=== PATIENT | female | born 1945 | race Caucasian/White ===

== ENCOUNTER 2017-09-12 08:01 | Outpatient (CLI) | payer BC ==
[~2017-09-12] VITALS: Ht 165.1 cm; Wt 98.6 kg
--- NOTE | ~2017-09-12 | HP ---
PATIENT: ТАТЬЯНА FERNANDES MEDICAL RECORD: [id number] ACCOUNT: [id number] LOCATION:[facility] : 43 ADMISSION DATE: 09/12/17 HISTORY AND PHYSICAL EXAMINATION DIAGNOSES: 1. Angina. 2. Abnormal nuclear stress test. 3. Hypertension. 4. Hyperlipidemia. HISTORY OF PRESENT ILLNESS: Ms. Fernandes presented with anginal symptomatology, risk stratify with a nuclear stress test reveals significant reversible ischemia, now brought for cardiac catheterization. REVIEW OF SYSTEMS: The patient reports easy bruising but reports no swollen glands. The patient reports no fever, no night sweats, no significant weight gain, no significant weight loss. No significant exercise tolerance. The patient reports no dry eyes, no irritation, no vision change. Patient reports no difficulty hearing and no ear pain. Patient reports no frequent nose bleeds or nose and sinus problems. Patient reports on arm pain on exertion. No shortness of breath while lying down. No history of heart murmur. Patient reports no cough, no wheezing or coughing up blood. Patient reports no abdominal pain, no vomiting. Normal appetite. No diarrhea and not vomiting blood. No nausea and no constipation. Patient reports no incontinence. No difficulty urinating. No hematuria. No increased frequency. Patient reports no muscle aches. No weakness, no arthralgias, no back pain. No swelling of the extremities. Patient reports no abnormal mole, no jaundice, no rashes. Reports no loss of consciousness. No weakness and no numbness. No seizures, dizziness, or headaches. The patient reports no depression, no sleep disturbance, feeling safe in a relationship and no alcohol abuse. Patient reports on fatigue. Reports no runny nose or sinus pressure. No itching, no hives, and no frequent sneezing. PHYSICAL EXAMINATION: GENERAL APPEARANCE: Well-nourished, well-developed, appears stated age. Level of distress, comfortable. PSYCHIATRIC: Mental status, alert, normal affect. Orientation, oriented to time, place and person. EYES: Lids and conjunctiva, noninjected. No discharge, no pallor. ENT: Lips, teeth, gums, normal dentition. Oropharynx, no cyanosis, no pallor. NECK: Carotid arteries, bilateral normal upstroke, no bruits, no thrills. JUGULAR VEINS: No jugular venous pressure or distention. CERVICAL LYMPH NODES: Nontender, nonenlarged. THYROID: Not enlarged. Nontender. No nodules. LUNGS: Respiratory effort, unlabored. CHEST: Normal curvature. No thoracic deformity. No chest wall tenderness. Percussion, resonant. Auscultation, clear. No wheezes, no rales, no rhonchi. CARDIOVASCULAR: Precordial exam, nondisplaced. No heaves or pericardial thrills. Rate and rhythm, regular. Heart sounds, normal S1, normal S2. No S3, no gallop, no rub. Systolic murmur, not heard. Diastolic murmur, not heard. EXTREMITIES: No cyanosis, no edema. Peripheral pulses, full and equal in all extremities, except as noted. No bruits appreciated. ABDOMEN: Soft, nondistended. Normal aorta. No bruit. Nontender. No masses. Liver, nontender, no hepatomegaly. Spleen, nontender, no splenomegaly. HISTORY AND PHYSICAL [id number] ТАТЬЯНА FERNANDES MUSCULOSKELETAL: No joint tenderness. No joint swelling. No erythema. NEUROLOGICAL: Normal gait, normal strength, normal tone. SKIN: Warm and dry. OVERALL IMPRESSION: Anginal symptomatology with significant reversibility on nuclear stress test. She has a high likelihood of hemodynamically significant coronary artery disease. We will proceed with coronary angiography. Further care depends upon the findings of the angiography. TRANSINT:[id number] Voice Confirmation ID: [id number] DOCUMENT ID: [id number] SOMMER KEN MD at 1324 CC: [id number] DICTATION DATE: 09/12/17 0954 LIVESTOCK PRODUCER: 09/12/17 1028 [facility] CL 09/12/[address] [address]
--- NOTE | ~2017-09-12 | OP ---
PATIENT NAME: ТАТЬЯНА PORTILLO MEDICAL RECORD: [id number] :43 LOCATION:D.CAT ADMISSION DATE: SURGEON: SOMMER KEN MD DATE OF OPERATION: 09/12/2017 PROCEDURES: 1. PTCA stent to RCA. 2. Intravascular ultrasound. 3. Left heart catheterization. 4. Selective coronary angiography. 5. Left ventriculogram. INDICATION: Angina and coronary artery disease. PROCEDURE IN DETAIL: After informed consent was obtained and after detailed explanation of risks, benefits as well as alternative therapies, the patient elected to proceed with angiogram and angioplasty. The right femoral area was prepped and draped in normal sterile fashion. The right femoral artery was cannulated via modified Seldinger technique with placement of a 6-Pashto sheath. All catheters exchanged through this sheath. FINDINGS: Left ventriculogram was performed in standard 30-degree CHAMBERS view, reveals good cardiac wall motion throughout all segments. Overall ejection fraction estimated at 60%. SELECTIVE CORONARY ANGIOGRAPHY: 1. Left main showed no significant angiographic disease. 2. Left anterior descending has previously placed stents. There is a hazy area of questionable stenosis proximal to this; however, intravascular ultrasound reveals that this is no greater than 40%. 3. The left circumflex has moderate irregularities, but no flow-limiting stenosis. 4. Right coronary artery has a greater than 80% stenosis in the mid vessel confirmed by intravascular ultrasound. PTCA STENT OF THE RCA: The stent used is 4.0 x 26 mm Integrity. Result was 0% residual stenosis. OVERALL IMPRESSION: Successful percutaneous transluminal coronary angioplasty stent of the right coronary artery going from greater than 80% initial stenosis to 0% residual stenosis. TRANSINT:[id number] Voice Confirmation ID: [id number] DOCUMENT ID: [id number] SOMMER KEN MD at 1324 CC: [id number] DICTATION DATE: 09/12/17 1138 BOOMSWING OPERATOR: 09/12/17 1326 [facility] CLI 09/12/[address] [address]
--- NOTE | ~2017-09-12 | HEMODYNAMI ---
PATIENT:ТАТЬЯНА PORTILLO MEDICAL RECORD: [id number] : 43 LOCATION:[facility]TE[facility] ADMISSION DATE: 09/12/17 Generatedon:09/12/201711:42 Patient name: ТАТЬЯНА PORTILLO Patient #: [id number] SSN: : 1945 Date of study: 09/12/2017 Page: Of Hemodynamic Procedure Report Patient Data Patient Demographics Procedure consent was obtained First Name: ТАТЬЯНА Gender: Female Last Name: LINDSEY : 1945 Middle Initial: D Age: 72 year(s) Patient #: [id number] Race: Unknown Additional ID: [id number] Contact details Address: [place] [address] State: [place] City: [place] Zip code: [address] Past Medical History Allergies Allergen Reaction Date Comments Reported Other allergy 09/12/2017 LIPITOR Admission Admission Data Admission Date: 09/12/2017 Admission Time: 8:01 Lab Results Lab Result Date: 09/12/2017 Lab Result Time: 0:00 Biochemistry Name Units Result Min Max BUN mg/dl 28 --(----)-* 7 18 Creatinine mg/dl 1.1 --(--*-)-- 0.6 1.3 CBC Name Units Result Min Max Hemoglobin g/dl 12.4 *-(----)-- 13.5 17.5 Procedure Procedure Types Cath Procedure Diagnostic Procedure [facility] w/Coronaries FFR/IVUS Intra-Coronary IVUS Initial Intra-Coronary IVUS Additional PCI Procedure Coronary Stent Coronary Stent Initial Miscellaneous Procedures Moderate Sedation up to 30 minutes Procedure Description Procedure Date Procedure Date: 09/12/2017 Procedure Start Time: 11:07 Procedure End Time: 11:41 Procedure Staff Name Function Luke Aguiar MD Performing Physician Iliana Lobo RT Monitor Jose Manuel Mooney RT Scrub Loki Aggarwal RN Nurse Procedure Data Cath Procedure Fluoroscopy Diagnostic fluoroscopy Total fluoroscopy Time: 8.6 time: 8.6 min min Diagnostic fluoroscopy Total fluoroscopy dose: 596 dose: 596 mGy mGy Contrast Material Contrast Material Type Amount (ml) Isovue 300 100 Entry Location Entry Primary Successful Side Size Upsize Upsize Entry Closure Marin ccessful Closure Location (Fr) 1 (Fr) 2 (Fr) Remarks Device Remarks Radial Right 6 Fr Mechanical TR BAND artery Short Compression Femoral Right 6 Fr Exoseal artery Short Estimated blood loss: 10 ml Diagnostic catheters Device Type Used For End Catheter Placement DIAGNOSTIC Syed 110cm Procedure 5Fr catheter ([id number]) Procedure Complications No complications Procedure Medications Medication Administration Route Dosage Oxygen NC 2 l/min 0.9% NaCl I.V. 100 ml/hr Heparin Flush Bag added to field 2 bags (1000units/500ml NS) Radial Cocktail added to field 1 syringe (Verapomil 2mg/Nitro 400mcg/Heparin 1500units) Fentanyl I.V. 50 mcg Versed I.V. 1 mg Fentanyl I.V. 50 mcg Versed I.V. 1 mg Fentanyl I.V. 50 mcg Versed I.V. 1 mg Radial Cocktail I.A. 1 syringe (Verapomil 2mg/Nitro 400mcg/Heparin 1500units) Fentanyl I.V. 50 mcg Versed I.V. 1 mg Zofran I.V. 4 mg Radial Cocktail added to field 1 syringe (Verapomil 2mg/Nitro 400mcg/Heparin 1500units) Radial Cocktail added to field 1 syringe (Verapomil 2mg/Nitro 400mcg/Heparin 1500units) Fentanyl I.V. 50 mcg Heparin Bolus I.V. 2000 units Integrilin (Bolus I.V. 9 ml 2mg/ml) Fentanyl I.V. 50 mcg Plavix P.O. 600 mg Hemodynamics Rest HGB: 12.4 (g/dl) Heart Rate: 66 (bpm) Snapshots Pre Cath Intra NCS Post Cath Vital Signs Time Heart Resp SPO2 etCO2 NIBP (mmHg) Rhythm Pain Sedation Rate (ipm) (%) (mmHg) Status Level (bpm) 10:38:07 68 23 99 0 153/83(136) NSR 0 (11) 10(A) , No pain 10:42:43 66 24 100 28.6 147/82(123) NSR 0 (11) 10(A) , No pain 10:47:18 65 26 100 27.8 140/79(119) NSR 0 (11) 10(A) , No pain 10:51:50 66 23 99 33.9 133/76(114) NSR 0 (11) 10(A) , No pain 10:56:18 64 17 98 33.1 132/76(105) NSR 0 (11) 10(A) , No pain 11:00:47 63 22 99 30.8 135/75(104) NSR 0 (11) 10(A) , No pain 11:05:19 62 21 100 33.1 130/67(115) NSR 0 (11) 10(A) , No pain 11:09:48 67 18 100 33.1 130/70(106) NSR 0 (11) 9(A) , No pain 11:14:14 66 20 98 33.9 117/70(96) NSR 0 (11) 9(A) , No pain 11:18:38 66 19 97 34.6 109/66(87) NSR 0 (11) 9(A) , No pain 11:23:00 69 18 98 29.3 113/63(89) NSR 0 (11) 9(A) , No pain 11:27:23 66 21 98 33.9 115/63(94) NSR 0 (11) 9(A) , No pain 11:32:54 63 23 99 34.6 130/74(115) NSR 0 (11) 9(A) , No pain 11:37:19 65 19 99 39.8 126/73(104) NSR 0 (11) 10(A) , No pain 11:41:43 62 17 100 36.1 124/76(98) NSR 0 (11) 10(A) , No pain Medications Time Medication Route Dose Verified Delivered Reason Note s Effectiveness by by 10:43:32 Oxygen NC 2 l/min Luke Manjarrez Per physician Cosme Aggarwal RN 10:43:41 0.9% NaCl I.V. 100 uLke Manjarrez Per physician ml/hr Cosme Aggarwal RN 10:43:51 Heparin Flush added 2 bags Luke Manjarrez used for Bag to Cosme Aggarwal RN procedure (1000units/500ml field NS) 10:44:04 Radial Cocktail added 1 Luke Manjarrez used for (Verapomil to syringe Cosme Aggarwal RN procedure 2mg/Nitro field 400mcg/Heparin 1500units) 10:52:47 Zofran I.V. 4 mg Luke Manjarrez for nausea Cosme Aggarwal RN 11:03:25 Fentanyl I.V. 50 mcg Luke Manjarrez for sedation Cosme Aggarwal RN 11:03:29 Versed I.V. 1 mg uLke Manjarrez for sedation Cosme Aggarwal RN 11:06:42 Fentanyl I.V. 50 mcg Luke Manjarrez for sedation Cosme Aggarwal RN 11:06:47 Versed I.V. 1 mg Luke Manjarrez for sedation Cosme Aggarwal RN 11:08:21 Fentanyl I.V. 50 mcg Luke Manjarrez for sedation Cosme Aggarwal RN 11:08:26 Versed I.V. 1 mg Luke Loki for sedation Cosme Aggarwal RN 11:09:32 Radial Cocktail I.A. 1 Luke Butler for (Verapomil syringe Cosme Aguiar MD vasodilation 2mg/Nitro 400mcg/Heparin 1500units) 11:09:49 Fentanyl I.V. 50 mcg Luek Butler for sedation Cosme Aguiar MD 11:09:54 Versed I.V. 1 mg Luke Butler for sedation Cosme Aguiar MD 11:14:33 Radial Cocktail added 1 Luke Manjarrez used for (Verapomil to syringe Cosme Aggarwal RN procedure 2mg/Nitro field 400mcg/Heparin 1500units) 11:16:25 Radial Cocktail added 1 Luke Butler for (Verapomil to syringe Cosme Aguiar MD vasodilation 2mg/Nitro field 400mcg/Heparin 1500units) 11:16:30 Fentanyl I.V. 50 mcg Luke Manjarrez for sedation Cosme Aggarwal RN 11:21:09 Heparin Bolus I.V. 2000 Luke Manjarrez for units Cosme Aggarwal RN anticoagulation 11:30:42 Integrilin I.V. 9 ml Luke Manjarrez for (Bolus 2mg/ml) Cosme Aggarwal RN anticoagulation 11:31:32 Fentanyl I.V. 50 mcg Luke Manjarrez for sedation Cosme Aggarwal RN 11:35:59 Plavix P.O. 600 mg Luke Manjarrez for Cosme Aggarwal RN antiplatelet therapy Procedure Log Time Note 10:06:58 Time tracking: Regular hours 10:07:03 Plan of Care:Hemodynamics will remain stable., Cardiac rhythm will remain stable., Comfort level will be maintained., Respiratory function will remain adequate., Patient/ family verbilizes understanding of procedure., Procedure tolerated without complication., Recovers from procedure without complications.. 10:08:00 Lab Result : Creatinine 1.1 mg/dl 10:08:00 Lab Result : BUN 28 mg/dl 10:08:00 Lab Result : Hemoglobin 12.4 g/dl 10:08:05 Lab results completed and on chart. 10:16:46 Jose Manuel Mooney RT(R) sent for patient. Start room use. 10:30:46 H&P Date Dictated: 09/12/2017 Within 30 days and on chart., H&P Addendum completed by physician on day of procedure. (MUST COMPLETE FOR ALL OUTPATIENTS). 10:31:15 Patient received from Pre/Post Procedure Room to CCL 3 Alert and oriented. Tansferred to table in Supine position. 10:31:17 Warm blankets applied, and mayad hugger turned on for patient comfort. 10:31:17 Correct patient and procedure confirmed by team. 10:31:18 Signed procedure consent form obtained from patient. 10:31:19 ECG and BP/O2 sat monitors applied to patient. 10:36:37 Vital chart was started 10:42:10 Baseline sample Acquired. 10:42:15 Rhythm: sinus rhythm 10:42:16 Full Disclosure recording started 10:42:17 Pre-procedure instructions explained to patient. 10:42:17 Pre-op teaching completed and patient verbalized understanding. 10:42:21 Family in patients room. 10:42:23 Patient NPO since Midnight. 10:42:34 Patient allergic to Other allergyLIPITOR 10:42:36 Is the patient allergic to Iodine/contrast media? No. 10:42:37 Is patient on blood thinner?Yes 10:42:59 PT LAST HAD WARFIN ON 09.07.17 10:43:02 Patient diabetic? Yes. 10:43:03 If diabetic: On Metformin? Yes 10:43:06 If on Metformin: Last Dose? 09/10/2017 10:43:10 Patient not . Patient is over age 55. 10:43:18 Previous problem with sedation/anesthesia? Yes NAUSEA 10:43:19 Snore? Yes 10:43:20 Sleep apnea? No 10:43:22 Deviated septum? No 10:43:23 Opens mouth fully? Yes 10:43:24 Sticks out tongue? Yes 10:43:25 Airway obstruction? No ? 10:43:28 Dentures? No ? 10:43:31 Modified Navneet's test Ulnar < 7 seconds 10:43:32 Oxygen 2 l/min NC was administered by Loki Aggarwal RN; Per physician; 10:43:32 Patient pain scale 0/10 ?. 10:43:41 0.9% NaCl 100 ml/hr I.V. was administered by Loki Aggarwal RN; Per physician; 10:43:51 Heparin Flush Bag (1000units/500ml NS) 2 bags added to field was administered by Loki Aggarwal RN; used for procedure; 10:44:04 Radial Cocktail (Verapomil 2mg/Nitro 400mcg/Heparin 1500units) 1 syringe added to field was administered by Loki Aggarwal RN; used for procedure; 10:44:51 IV patent on arrival in left forearm with 0.9% NaCl at [facility]. 10:44:57 Alarms reviewed by R. N. 10:45:01 Sharps counted by scrub and verified by R.N. 10:46:52 Use device set Radial Dx or PCI 10:46:53 ACIST Syringe (10670) opened to sterile field. 10:46:54 ACIST Hand Control (14179) opened to sterile field. 10:46:55 ACIST Manifold (85215) opened to sterile field. 10:46:55 Tegaderm 4 x 4 (1626W) opened to sterile field. 10:46:58 Bag Decanter () opened to sterile field. 10:46:59 Medline Cath Pack ([id number]) opened to sterile field. 10:46:59 SHEATH 6FR Slender ([id number]) opened to sterile field. 10:47:00 DIAGNOSTIC WIRE .035 260cm J wire (324719) opened to sterile field. 10:47:00 MBrace Wrist Support ([id number]) opened to sterile field. 10:52:47 Zofran 4 mg I.V. was administered by Loki Aggarwal RN; for nausea; 11:03:17 --------ALL STOP TIME OUT------ :17 Final Timeout: patient, procedure, and site verified with staff and physician. All members of the team are in agreement. 11::19 Right Radial & Right Groin site verified by team. ::22 Physical assessment completed. ASA score P 2 - A patient with mild systemic disease as per Luke Aguiar MD. ::25 Fentanyl 50 mcg I.V. was administered by Loki Aggarwal RN; for sedation; :25 Sedation plan: IV Moderate Sedation Medication:Versed, Fentanyl 11::29 Versed 1 mg I.V. was administered by Loki Aggarwal RN; for sedation; ::28 Zero performed for pressure channel P1 11::42 Fentanyl 50 mcg I.V. was administered by Loki Aggarwal RN; for sedation; 11::47 Versed 1 mg I.V. was administered by Loki Aggarwal RN; for sedation; 11::33 Procedure started. 11::38 Local anesthetic to right radial artery with Lidocaine 2% by Luke Aguiar MD.INITIAL ACCESS ONLY 11:08:21 Fentanyl 50 mcg I.V. was administered by Loki Aggarwal RN; for sedation; 11:08:26 Versed 1 mg I.V. was administered by Loki Aggarwal RN; for sedation; 11:08:55 A 6 Fr Short sheath was inserted into the Right Radial artery 11:09:11 A DIAGNOSTIC Syed 110cm 5Fr catheter (988132) was advanced over the wire and used for Procedure. 11:09:32 Radial Cocktail (Verapomil 2mg/Nitro 400mcg/Heparin 1500units) 1 syringe I.A. was administered by Luke Aguiar MD; for vasodilation; 11:09:49 Fentanyl 50 mcg I.V. was administered by Luke Aguiar MD; for sedation; 11::54 Versed 1 mg I.V. was administered by Luke Aguiar MD; for sedation; 11:10:13 LV gram done using CHAMBERS 11:10:16 Injector settings: Ml/sec: 7, Volume: 15, 11:10:36 EF : 55 % 11:11:52 RCA angiography performed. 11:12:18 Catheter removed. 11:13:19 GUIDE 6FR XBLAD 3.5 catheter ([id number]) opened to sterile field. 11:13:47 Merit INFLATION SYRINGE opened to sterile field. 11:14:04 CHOICE PT Extra Support 182cm wire ([id number]) opened to sterile field. 11:14:33 Radial Cocktail (Verapomil 2mg/Nitro 400mcg/Heparin 1500units) 1 syringe added to field was administered by Loki Aggarwal RN; used for procedure; 11:15:04 6 Fr XBLAD 3.5 guide catheter was inserted over the wire 11:15:30 Guide catheter removed. 11:15:40 RADIAL SPASM...WILL GO TO GROIN 11:16:08 Local anesthetic to right femoral artery with Lidocaine 2% by Luke Aguiar MD.ADDITIONAL ACCESS 11:16:24 SHEATH 6FR [place] (VSR259) opened to sterile field. 11:16:25 Radial Cocktail (Verapomil 2mg/Nitro 400mcg/Heparin 1500units) 1 syringe added to field was administered by Luke Aguiar MD; for vasodilation; 11:16:30 Fentanyl 50 mcg I.V. was administered by Loki Aggarwal RN; for sedation; 11:16:43 A 6 Fr Short sheath was inserted into the Right Femoral artery 11:17:47 6 Fr XBLAD 3.5 guide catheter was inserted over the wire 11:18:35 LCA angiography performed. 11:19:36 [place] IVUS Catheter (97008C) opened to sterile field. 11:20:11 CHOICE PT wire advanced. 11:20:16 Wire advanced across lesion. 11:20:53 IVUS catheter advanced over wire. 11:20:59 IVUS pass to LAD lesion performed. 11:21:09 Heparin Bolus 2000 units I.V. was administered by Loki Aggarwal RN; for anticoagulation; 11:24:28 IVUS catheter removed over wire. 11:26:18 Wire removed. 11:26:19 Guide catheter removed. 11:26:47 GUIDE 6FR AR 1.0 catheter ([id number]) opened to sterile field. 11:27:07 6 Fr AR1 guide catheter was inserted over the wire 11:27:45 CHOICE PT wire advanced. 11:27:50 Wire advanced across lesion. 11:28:17 IVUS catheter advanced over wire. 11:28:20 IVUS pass to RCA lesion performed. 11:29:17 IVUS catheter removed over wire. 11:30:42 Integrilin (Bolus 2mg/ml) 9 ml I.V. was administered by Loki Aggarwal RN; for anticoagulation; 11:31:32 Fentanyl 50 mcg I.V. was administered by Loki Aggarwla RN; for sedation; 11:31:38 Inflation Number: 1 A INTEGRITY RX 4.0 x 26 stent ([id number]) was prepped and advanced across the Mid RCA. The stent was deployed at 17 DON for 0:00 (min:sec). 11:32:02 Stent catheter was removed intact over wire. 11:32:02 Wire removed. 11:32:03 Guide catheter removed. 11:32:06 TR BAND Standard ([id number]) opened to sterile field. 11:32:12 EXOSEAL 6Fr (EX600) opened to sterile field. 11:32:28 Sheath removed intact; hemostasis achieved with Exoseal to the Right Femoral artery. 11:32:46 Sheath removed intact; hemostasis achieved with Mechanical Compression to the Right Radial artery. 11:32:53 Procedure ended.(Physican Out) 11:35:14 Fluoroscopy dose: 596 mGy 11:35:14 Flurop Dose total: 596 11:35:19 Fluoroscopy time 08.60 minutes. 11:35:32 Contrast amount:Isovue 300 100ml. 11:35:35 Sharps counted by scrub and verified by R.N. 11:35:45 TR band inflated with 10cc of air. 11:35:49 Post-op/insertion site Right Femoral artery dressed using a 4 x 4 and Tegaderm. 11:35:52 Post right femoral artery:stable, soft, clean and dry 11:35:57 Post-procedure physical assessment completed. ASA score P 2 - A patient with mild systemic disease as per Luke Aguiar MD. 11:35:59 Plavix 600 mg P.O. was administered by Loki Aggarwal RN; for antiplatelet therapy; 11:36:02 Post procedure rhythm: unchanged. 11:36:04 Estimated blood loss: 10 ml 11:36:05 Post procedure instruction explained to patient.Patient verbalizes understanding. 11:36:06 Patient needs reinforcement of post procedure teaching. 11:36:48 Procedure type changed to Cath procedure, Diagnostic procedure, LHC, [facility] w/Coronaries, FFR/IVUS, Intra-Coronary IVUS Initial, Intra-Coronary IVUS Additional, PCI procedure, Coronary Stent, Coronary Stent Initial, Miscellaneous Procedures, Moderate Sedation up to 30 minutes 11:39:08 Procedure and supply charges have been captured, reviewed, submitted and are correct. 11:39:11 Procedure Complication : No complications 11:40:50 Vital chart was stopped 11:40:51 See physician's report for complete and final results. 11:40:54 Report given to Pre/Post Procedure Room. 11:40:58 Patient transfered to Pre/Post Procedure Room with Bed. 11:41:00 Procedure ended. 11:41:00 Full Disclosure recording stopped 11:41:07 End room use (Document Last) Intervention Summary Intervention Notes Time ActionType Lesion and Equipment Action# Pressure Duration Attributes Used 11:31:38 Place stent Mid RCA INTEGRITY RX 1 17 00:00 4.0 x 26 stent ([id number]) Device Usage Item Name Manufacture Quantity Catalog Number Hospital Part Current Mini mal Lot# / Charge Number Stock Stock Serial# Code ACIST Acist 1 43822 630128 946617 814784 20 Syringe Medical (77259) Systems Inc ACIST Hand Acist 1 76835 836387 093097 439506 5 Control Medical (37667) Systems Inc ACIST Acist 1 69465 693420 320990 070019 5 Manifold Medical (24432) Systems Inc Tegaderm 4 x 3M 1 1626W 955716 926964 323875 5 4 (1626W) Bag Decanter Microtek 1 2001S 000127 75679 161807 5 (2001S) Medical Inc. Medline Cath Cardinal 1 [id number] 631841 07445 830359 5 [facility] ([id number]) SHEATH 6FR Terumo 1 [id number] 714437 075494 990035 40 Slender ([id number]) DIAGNOSTIC [facility] [place] 1 432400 640957 851808 869418 30 WIRE .035 260cm J wire (312610) MBrace Wrist Advanced 1 140-0250-00 148629 73718 916111 5 Support Vascular ([id number]) Dynamics DIAGNOSTIC Terumo 1 40-6713 142782 775515 766681 5 Syed 110cm 5Fr catheter (858947) GUIDE 6FR Cardinal 1 [id number] 591519 512079 254912 10 XBLAD 3.5 Health catheter (64430564) Merit Medtronic 1 [id number] 364324 88640 410971 5 INFLATION SYRINGE CHOICE PT [place] 1 [id number] 644787 390707 442215 5 Extra Scientific Support 182cm wire ([id number]) SHEATH 6FR Terumo 1 [id number] 760989 217861 970761 40 [place] (VKP798) [place] 1 [id number] 469026 291612 721787 8 [place] IVUS Catheter (78223X) GUIDE 6FR AR Medtronic 1 [id number] 738866 04260 142178 1 1.0 catheter (UF5CQ89) INTEGRITY RX Medtronic 1 [id number] 971496 949176 069615 5 [id number] 4.0 x 26 stent ([id number]) TR BAND Terumo 1 [id number] 869869 245807 404107 40 Standard ([id number]) EXOSEAL 6Fr Cardinal 1 EX600 360663 790300 403812 10 (EX600) Health Signature Audit [place] Stage Time Signature Unsigned Intra-Procedure 09/12/2017 Iliana Lobo 11:41:57 AM RT(R) Signatures Monitor : Iliana Lobo Signature : RT Date : Time : [id number] [place] [address]
[2017-09-12] MEDS ORDERED: BAYER CHEWABLE81 MG PO (08:30)
[2017-09-12] MEDS ORDERED: NORVASC5 MG PO (08:30)
[2017-09-12] MEDS ORDERED: PEPCID AC20 MG PO (08:31)
[2017-09-12] MEDS ORDERED: GLIMEPIRIDE4 MG PO (08:31)
[2017-09-12] MEDS ORDERED: VICTOZA0.6 MG/0.1 SQ (08:31)
[2017-09-12] MEDS ORDERED: FISH OIL 1,0001 CA1 PO (08:31)
[2017-09-12] MEDS ORDERED: COZAAR100 MG PO (08:32)
[2017-09-12] MEDS ORDERED: GLUCOPHAGE1000 MG PO (08:32)
[2017-09-12] MEDS ORDERED: TOPROL XL25 MG PO (08:32)
[2017-09-12] MEDS ORDERED: ATIVAN1 MG PO (08:32)
[2017-09-12] MEDS ORDERED: OMEPRAZOLE20 M1 PO (08:33)
[2017-09-12] MEDS ORDERED: DYAZIDE 37.5/251 CAP PO (08:33)
[2017-09-12] MEDS ORDERED: PRAVACHOL80 MG PO (08:33)
[2017-09-12] MEDS ORDERED: COUMADIN5 MG PO (08:34)
[2017-09-12 08:40] VITALS: BP 153/72; Ht 165.1 cm; Wt 98.6 kg
[2017-09-12 09:00] LABS: BASOPHILS 0.3 % (0-2); EOSINOPHILS 1.8 % (0-7); HEMATOCRIT 37.9 % (36.0-48.0); HEMOGLOBIN 12.4 g/dL (12-16); IMMATURE GRANULOCYTES 0.2 % (0-5); LYMPHOCYTES 31.6 % (15-50); MCH 29.2 pg (26.0-34.0); MCHC 32.7 g/dL (31.0-37.0); MCV 89.2 fL (80.0-100.0); MEAN PLATELET VOLUME 9.3 fL (7.4-10.4); MONOCYTES 11.1 % (2-11); PLATELET COUNT 127 10x3/uL (130-400); RBC 4.25 10x6/uL (4.00-5.40); RDW 13.8 % (11.5-14.5); WBC 6.2 10x3/uL (4.8-10.8)
[2017-09-12 09:16] LABS: ANION GAP 13.3 mmol/L (8-16); CALCIUM 9.2 mg/dL (8.5-10.1); CARBON DIOXIDE 25.7 mmol/L (21.0-32.0); CREATININE - SERUM 1.1 mg/dL (0.6-1.3); INR 1.33 (0.85-1.17)
[2017-09-12] MEDS ORDERED: PLAVIX75 MG PO (12:37)
== END 2017-09-12 16:30 | disposition home or self-care (01) ==
LOC: D.CATH 08:01
PROVIDERS: Internal Medicine Interventional Cardiology
DX: I25.119 Atherosclerotic heart disease of native coronary artery with unspecified angina pectoris (principal); Z95.5 Presence of coronary angioplasty implant and graft; R94.39 Abnormal result of other cardiovascular function study; I10 Essential (primary) hypertension; E78.5 Hyperlipidemia, unspecified